=== PATIENT | female | born 1975 | race Caucasian/White ===

== ENCOUNTER 2018-09-02 09:43 | Inpatient (IN) | payer OTHER ==
[~2018-09-02] VITALS: Ht 167.6 cm; Wt 88.0 kg
[~2018-09-02 09:43] MED LIST: PEPCID40 MG PO; ZOFRAN4 MG PO
[2018-09-04] MEDS ORDERED: ZANTAC300 MG PO (09:20)
[2018-09-04] MEDS ORDERED: AMOX1TAB5 PO (09:20)
[2018-09-04] MEDS ORDERED: ULTRACET PO (09:20)
== END 2018-09-04 09:32 | disposition home or self-care (01) | DRG 355 ==
LOC: ER 09:43 → SURG 22:20
PROVIDERS: ADMIT Surgery
PROC: 0WQF0ZZ Repair Abdominal Wall, Open Approach (ICD-10-PCS; principal; 2018-09-03 09:00)
DX: K43.0 Incisional hernia with obstruction, without gangrene (principal)